=== PATIENT | female | born 1950 | race Caucasian/White ===

== ENCOUNTER → 2016-11-23 | Outpatient (CLI) | payer MEDICARE, OTHER ==
--- NOTE | 2016-11-23 15:29 | KCIC ---
PROCEDURE MRI study of the left foot without contrast HISTORY Metatarsal pain since September 2016. Swelling between the 3rd and 5th digits. No known injury. TECHNIQUE Noncontrast MRI sequences of the left midfoot were performed in all 3 planes. COMPARISON None available. FINDINGS There is diffuse edema of the 3rd metatarsal bone with relative sparing of the proximal and distal epiphysis. There is a healing stress fracture of the distal shaft of the 3rd metatarsal bone with periosteal reaction. There is associated soft tissue edema. Alignment is normal. 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 There is mild primary degenerative osteoarthritis of the 1st and 4th tarsal metatarsal joints. The flexor and extensor tendons are intact. No tenosynovitis is seen. IMPRESSION There is a nondisplaced subacute healing stress fracture of the distal shaft of the 3rd metatarsal bone. There is diffuse edema of the metatarsal bone with relative sparing of the proximal and distal epiphysis. Electronically signed by: Cricket Sandoval MD (Nov 23, 2016 15:28:21)
== END | disposition home or self-care (01) ==
LOC: KCIC MRI 14:34
PROVIDERS: ATTEND Podiatrist Foot & Ankle Surgery
DX: M84.375A Stress fracture, left foot, initial encounter for fracture (principal); X58.XXXA Exposure to other specified factors, initial encounter; Y93.89 Activity, other specified; Y92.89 Other specified places as the place of occurrence of the external cause; Y99.8 Other external cause status
CPT/HCPCS: 73718

== ENCOUNTER → 2017-07-07 | Outpatient (CLI) | payer MEDICARE, OTHER ==
--- NOTE | 2017-07-07 14:54 | KCIC ---
DATE: 07/07/2017 EXAM: MAMMO SOHAIL SCREENING BILATERAL HISTORY: Routine screening COMPARISON: 02/25/2016 This study was interpreted with the benefit of Computerized Aided Detection (CAD). The breast parenchyma shows scattered fibroglandular densities. Breast parenchyma level B. FINDINGS: 2-D and 3-D tomosynthesis imaging was performed in CC and MLO projections. No new or enlarging breast densities are seen. Unchanged benign type calcifications are present. No suspicious microcalcifications have developed. IMPRESSION: Stable mammograms without evidence of malignancy. BI-RADS CATEGORY: 2 BENIGN FINDING(S) RECOMMENDED FOLLOW-UP: 12M 12 MONTH FOLLOW-UP PQRS compliance statement: Patient information was entered into a reminder system with a target due date for the next mammogram. Mammography is a sensitive method for finding small breast cancers, but it does not detect them all and is not a substitute for careful clinical examination. A negative mammogram does not negate a clinically suspicious finding and should not result in delay in biopsying a clinically suspicious abnormality. "Our facility is accredited by the [employer] Mammography [employer]."
== END | disposition home or self-care (01) ==
LOC: KCIC MAMMO 14:08
PROVIDERS: ATTEND Obstetrics & Gynecology
DX: Z12.31 Encounter for screening mammogram for malignant neoplasm of breast (principal)
CPT/HCPCS: 77063; G0202; 77067

== ENCOUNTER → 2017-07-07 | Outpatient (CLI) | payer MEDICARE, OTHER ==
--- NOTE | 2017-07-07 15:28 | KCIC ---
MR of the right shoulder Indication: Right shoulder pain. Patient fell April 2017. Decreased range of motion. Technique: Standard multiplanar sequences are obtained. Findings: Acromioclavicular joint: Mildly degenerative. No significant undersurface mass effect. Rotator cuff: Thickening and hyperintense signal compatible with tendinosis. Small linear undersurface tear of the supraspinatus tendon, crosses 50 percent of the tendon with. There is a very tiny component of this tear which appears to extend all the way through to the bursal surface where it measures 1 mm thick, coronal series 8, image 10. No retraction. Mild fluid in the subdeltoid bursa. Glenohumeral cartilage: No acute defect or advanced DJD. Fluid: Small amount of joint fluid. Labrum: Posterosuperior labral tear. Biceps tendon: Mild tendinosis. Bones: No lesion or acute fracture. Soft tissue: No acute findings. Impression: 1. Rotator cuff tendinosis. There is a small undersurface tear of the supraspinatus tendon, the bulk of which is about 50 percent deep. However, there is a very narrow 1 mm component which does appear to extend all full-thickness through the bursal surface tissue. No retraction. 2. Small posterosuperior labral tear. 3. Biceps tendinosis. Electronically signed by: Fede Malone MD (07/07/2017 3:25 PM) [facility]
== END | disposition home or self-care (01) ==
LOC: KCIC MRI 13:52
PROVIDERS: ATTEND Orthopaedic Surgery
DX: M75.101 Unspecified rotator cuff tear or rupture of right shoulder, not specified as traumatic (principal)
CPT/HCPCS: 73221

== ENCOUNTER → 2017-07-18 | Outpatient (CLI) | payer MEDICARE, OTHER ==
--- NOTE | 2017-07-18 16:42 | KCIC ---
CHEST PA LATERAL History: Chronic cough Comparison: February 18, 2016 Findings: 2 views of the chest are submitted. There is again likely emphysema. Heart size is stable, within normal limits. Previously seen left upper lobe infiltrate is no longer present. The there is no new infiltrate or pleural fluid. Impression: 1. There is no lobar infiltrate. 2. There is emphysema. 3. CT would be more sensitive for detection of pulmonary nodules. Electronically signed by: Marco Antonio Klein MD (07/18/2017 4:38 PM) [facility]
== END | disposition home or self-care (01) ==
LOC: KCIC 16:11
PROVIDERS: ATTEND Family Medicine
DX: J43.9 Emphysema, unspecified (principal)
CPT/HCPCS: 71020

== ENCOUNTER → 2018-04-26 | Outpatient (CLI) | payer MEDICARE ==
--- NOTE | 2018-04-26 14:48 | KCIC ---
Bone densitometry 04/26/2018 11:59 AM Indication: Osteoporosis screening exam. Postmenopausal. Comparison Study: None. Discussion: Bone Densitometry was performed with dual photon absorption of the lumbar spine and left proximal femur. Lumbar Spine: Bone average density is 0.988g/cm2 for L1-L4. T-Score is -0.5. Left femoral neck: Bone average density is 0.965g/cm2. T-Score is 0.2. IMPRESSION: Normal bone mineral density Note: Definitions established by the World Health Organization: Normal: T-score is -1.0 or above. Osteopenia: T-score is between -1.0 and -2.5. Osteoporosis: T-score is -2.5 or below. Electronically signed by: Iggy Hathaway MD (04/26/2018 2:44 PM) [facility]
== END | disposition home or self-care (01) ==
LOC: KCIC DEXA 11:19
PROVIDERS: ATTEND Physician Assistant Medical
DX: Z13.820 Encounter for screening for osteoporosis (principal); J43.9 Emphysema, unspecified; Z78.0 Asymptomatic menopausal state
CPT/HCPCS: 77080

== ENCOUNTER → 2019-04-09 | Outpatient (CLI) | payer MEDICARE ==
--- NOTE | 2019-04-09 15:18 | KCIC ---
EXAM: Bilateral digital screening mammogram with tomosynthesis. HISTORY: 68-year-old female presents for screening mammography. TECHNIQUE: Full-field digital craniocaudal and mediolateral oblique 2D and 3D tomosynthesis images of both breasts are obtained for evaluation. Computer aided detection with [employer] software version 9.3 was applied. COMPARISON: 07/07/2017 and 05/20/2015 BREAST PARENCHYMAL DENSITY: Level B - Scattered fibroglandular densities. FINDINGS: There is no new suspicious mass, microcalcification or region of architectural distortion. There is stable slight retraction of the right nipple. The nearly 4 year course stability favors benignity. IMPRESSION: BI-RADS Category 2: Benign finding(s). RECOMMENDATION: Annual mammography is recommended. If your mammogram demonstrates that you have dense breast tissue, which could hide abnormalities, and if you have other risk factors for breast cancer that have been identified, you might benefit from supplemental screening tests that may be suggested by your ordering physician. Dense breast tissue, in and of itself, is a relatively common condition. This information is not provided to cause undue concern, but rather to raise your awareness and to promote discussion with your physician regarding the presence of other risk factors, in addition to dense breast tissue. A report of your mammography results will be sent to you and your physician. You should contact your physician if you have any questions or concerns regarding this report. Mammography is a sensitive method for finding small breast cancers, but it does not detect them all and is not a substitute for careful clinical examination. A negative mammogram does not negate a clinically suspicious finding and should not result in delay in biopsying a clinically suspicious abnormality. PQRS compliance statement - Patient information was entered into a reminder system with a target due date for the next mammogram. "Our facility is accredited by the [employer] Mammography Program." Electronically signed by: Nydia Kiran MD (04/09/2019 3:15 PM) [facility]
== END | disposition home or self-care (01) ==
LOC: KCIC MAMMO 11:44
PROVIDERS: ATTEND Obstetrics & Gynecology
DX: Z12.31 Encounter for screening mammogram for malignant neoplasm of breast (principal); N64.89 Other specified disorders of breast
CPT/HCPCS: 77063; 77067

== ENCOUNTER 2021-11-22 21:34 | Emergency (ER) | payer MEDICARE ==
[~2021-11-22] VITALS: Ht 170.2 cm; Wt 81.8 kg
[2021-11-22] MEDS ORDERED: ONDANSETRON PF 4 MG/2 ML VIAL. IVP ONE (22:00)
[2021-11-22] MEDS ORDERED: IV NORMAL SALINE 500ML BAG 500 ML IV ONE (22:00)
[2021-11-22] MEDS ORDERED: HALOPERIDOL LACTATE 5 MG/ML VIAL. IM ONE (22:15)
[2021-11-22] MEDS ORDERED: HALOPERIDOL LACTATE 5 MG/ML VIAL. ONE (22:23)
[2021-11-22 22:24] LABS: BASO # 0.1 x10^3/uL (0.0-0.2); BASO % 1 % (0-3); EOS # 0.2 x10^3/uL (0.0-0.7); EOS % 3 % (0-3); HEMATOCRIT 39.5 % (36.0-47.0); HEMOGLOBIN 13.4 g/dL (12.0-15.5); LYMPH # 1.6 x10^3/uL (1.0-4.8); LYMPH % 25 % (24-48); MEAN CORPUSCULAR HEMOGLOBIN 31 pg (25-35); MEAN CORPUSCULAR HGB CONC 34 g/dL (31-37); MEAN CORPUSCULAR VOLUME 92 fL (79-100); MONO # 0.4 x10^3/uL (0.0-1.1); MONO % 6 % (0-9); NEUT # 4.2 x10^3/uL (1.8-7.7); NEUT % 65 % (31-73); PLATELET COUNT 159 x10^3/uL (140-400); RED BLOOD COUNT 4.31 x10^6/uL (3.50-5.40); RED CELL DISTRIBUTION WIDTH 14.1 % (11.5-14.5); WHITE BLOOD COUNT 6.4 x10^3/uL (4.0-11.0)
[2021-11-22 23:47] LABS: CALCIUM 8.3 mg/dL (8.5-10.1); CREATININE 0.9 mg/dL (0.6-1.0); GFR 61.5; POTASSIUM 4.2 mmol/L (3.5-5.1)
[2021-11-22 23:57] LABS: ALBUMIN 3.6 g/dL (3.4-5.0); ALBUMIN/GLOBULIN RATIO 1.1 (1.0-1.7); TOTAL BILIRUBIN 0.2 mg/dL (0.2-1.0); TOTAL PROTEIN 6.9 g/dL (6.4-8.2)
[2021-11-23 01:30] VITALS: BP 124/78
[2021-11-23 01:53] LABS: BARBITURATES NEG (NEG); BENZODIAZEPINES NEG (NEG); CANNABINOIDS POS (NEG); COCAINE NEG (NEG); METHADONE NEG (NEG); OPIATES NEG (NEG); PHENCYCLIDINE NEG (NEG)
[2021-11-23 01:54] LABS: AMPHETAMINE/METHAMPHETAMINE NEG (NEG)
[2021-11-23 01:57] LABS: BACTERIA,URINE 0 /HPF (0-FEW); RBC,URINE 0 /HPF (0-2)
--- NOTE | 2021-11-23 02:03 | PHYS DOC ---
Past Medical History Past Surgical History: No Surgical History General Adult EDM: Chief Complaint: NAUSEA/VOMITING/DIARRHEA HPI: HPI: Patient is a 71 year old female states that she took a edible CBD gummy that was given by her neighbor for her pain states that afterwards she started to feel lightheaded and started having intractable vomiting. Patient denies any abdominal pain. Patient states that she did have a pizza no other sick contacts. Patient states that she usually takes her own CBD supplements but was given 1 by her neighbor which she does not know the name brand to. Review of Systems: Review of Systems: Constitutional: Denies fever or chills. [] Eyes: Denies change in visual acuity. [] HENT: Denies nasal congestion or sore throat. [] Respiratory: Denies cough or shortness of breath. [] Cardiovascular: Lightheadedness denies chest pain or edema. [] GI: Denies abdominal pain, nausea, vomiting, bloody stools or diarrhea. [] : Nausea vomiting denies dysuria. [] Musculoskeletal: Denies back pain or joint pain. [] Integument: Denies rash. [] Neurologic: Denies headache, focal weakness or sensory changes. [] Endocrine: Denies polyuria or polydipsia. [] Lymphatic: Denies swollen glands. [] Psychiatric: Denies depression or anxiety. [] Heart Score: C/O Chest Pain: No Risk Factors: Risk Factors: DM, Current or recent (<one month) smoker, HTN, HLP, family history of CAD, obesity. Risk Scores: Score 0 - 3: 2.5% MACE over next 6 weeks - Discharge Home Score 4 - 6: 20.3% MACE over next 6 weeks - Admit for Clinical Observation Score 7 - 10: 72.7% MACE over next 6 weeks - Early Invasive Strategies Current Medications: Current Medications Medications (Trade) Dose Ordered Sig/Mikel Start Time Stop Time Status Last Admin Dose Admin Haloperidol Lactate (Haldol Inj) 2 mg 1X ONCE 11/22/21 22:15 11/22/21 22:16 UNV 11/22/21 22:29 2 MG Lorazepam (Ativan Inj) 1 mg 1X ONCE 11/22/21 22:15 11/22/21 22:16 UNV 11/22/21 22:29 1 MG Ondansetron HCl (Zofran) 4 mg 1X ONCE 11/22/21 22:00 11/22/21 22:03 DC Sodium Chloride 500 ml @ 500 mls/hr 1X ONCE 11/22/21 22:00 11/22/21 22:59 UNV 11/22/21 22:30 500 MLS/HR Physical Exam: PE: Constitutional: Well developed, well nourished, moderate distress ill-appearing HENT: Normocephalic, atraumatic, bilateral external ears normal, oropharynx moist, no oral exudates, nose normal. [] Eyes: PERRLA, EOMI, conjunctiva normal, no discharge. [] Neck: Normal range of motion, no tenderness, supple, no stridor. [] Cardiovascular:Heart rate regular rhythm, no murmur [] Lungs & Thorax: Bilateral breath sounds clear to auscultation [] Abdomen: Actively vomit bowel sounds normal, soft, no tenderness, no masses, no pulsatile masses. [] Skin: Warm, dry, no erythema, no rash. [] Back: No tenderness, no CVA tenderness. [] Extremities: No tenderness, no cyanosis, no clubbing, ROM intact, no edema. [] Neurologic: Alert and oriented X 3, normal motor function, normal sensory function, no focal deficits noted. [] Psychologic: Affect normal, judgement normal, mood normal. [] Current Patient Data: Labs: Laboratory Tests Test 11/22/21 22:15 11/22/21 23:20 11/23/21 01:34 White Blood Count 6.4 x10^3/uL (4.0-11.0) Red Blood Count 4.31 x10^6/uL (3.50-5.40) Hemoglobin 13.4 g/dL (12.0-15.5) Hematocrit 39.5 % (36.0-47.0) Mean Corpuscular Volume 92 fL (79-100) Mean Corpuscular Hemoglobin 31 pg (25-35) Mean Corpuscular Hemoglobin Concent 34 g/dL (31-37) Red Cell Distribution Width 14.1 % (11.5-14.5) Platelet Count 159 x10^3/uL (140-400) Neutrophils (%) (Auto) 65 % (31-73) Lymphocytes (%) (Auto) 25 % (24-48) Monocytes (%) (Auto) 6 % (0-9) Eosinophils (%) (Auto) 3 % (0-3) Basophils (%) (Auto) 1 % (0-3) Neutrophils # (Auto) 4.2 x10^3/uL (1.8-7.7) Lymphocytes # (Auto) 1.6 x10^3/uL (1.0-4.8) Monocytes # (Auto) 0.4 x10^3/uL (0.0-1.1) Eosinophils # (Auto) 0.2 x10^3/uL (0.0-0.7) Basophils # (Auto) 0.1 x10^3/uL (0.0-0.2) Sodium Level 140 mmol/L (136-145) Potassium Level 4.2 mmol/L (3.5-5.1) Chloride Level 107 mmol/L (98-107) Carbon Dioxide Level 28 mmol/L (21-32) Anion Gap 5 (6-14) L Blood Urea Nitrogen 27 mg/dL (7-20) H Creatinine 0.9 mg/dL (0.6-1.0) Estimated GFR (Cockcroft-Gault) 61.5 BUN/Creatinine Ratio 30 (6-20) H Glucose Level 133 mg/dL (70-99) H Calcium Level 8.3 mg/dL (8.5-10.1) L Total Bilirubin 0.2 mg/dL (0.2-1.0) Aspartate Amino Transferase (AST) 36 U/L (15-37) Alanine Aminotransferase (ALT) 55 U/L (14-59) Alkaline Phosphatase 88 U/L (46-116) Total Protein 6.9 g/dL (6.4-8.2) Albumin 3.6 g/dL (3.4-5.0) Albumin/Globulin Ratio 1.1 (1.0-1.7) Lipase 75 U/L (73-393) Urine Collection Type Unknown Urine Color (Auto) Colorless Urine Turbidity Clear Urine pH (Auto) 6.5 (<5.0-8.0) Urine Specific [place] 1.012 (1.000-1.030) Urine Protein (Auto) Negative mg/dL (Negative) Urine Glucose (Auto)(UA) Negative mg/dL (Negative) Urine Ketones (Auto) Negative mg/dL (Negative) Urine Blood (Auto) Negative (Negative) Urine Nitrite (Auto) Negative (Negative) Urine Bilirubin (Auto) Negative (Negative) Urine Urobilinogen (Auto) Normal mg/dL (Normal) Urine Leukocyte Esterase (Auto) Moderate (Negative) Urine RBC 0 /HPF (0-2) Urine WBC 5-10 /HPF (0-4) Urine Squamous Epithelial Cells Few /LPF Urine Bacteria 0 /HPF (0-FEW) Urine Mucus Slight /LPF Urine Opiates Screen Neg (NEG) Urine Methadone Screen Neg (NEG) Urine Barbiturates Neg (NEG) Urine Phencyclidine Screen Neg (NEG) Urine Amphetamine/Methamphetamine Neg (NEG) Urine Benzodiazepines Screen Neg (NEG) Urine Cocaine Screen Neg (NEG) Urine Cannabinoids Screen Pos (NEG) Urine Ethyl Alcohol Neg (NEG) Laboratory Tests 11/22/21 22:15 Laboratory Tests 11/22/21 23:20 Vital Signs: Vital Signs Date Time Temp Pulse Resp B/P (MAP) Pulse Ox O2 Delivery O2 Flow Rate FiO2 11/22/21 21:51 97.4 78 16 134/72 (92) 100 Room Air 97.4 EKG: EKG: [] Radiology/Procedures: Radiology/Procedures: [] Course & Med Decision Making: Course & Med Decision Making Pertinent Labs and Imaging studies reviewed. (See chart for details) [] Patient is resting comfortably. Return precautions were discussed signs at the bedside. Lab results were reviewed Maia Disclaimer: Maia Disclaimer: This electronic medical record was generated, in whole or in part, using a voice recognition dictation system. Departure Departure Referrals: YESY STACY MD (PCP) ZOE SCRUGGS DO Nov 23, 2021 02:03
== END 2021-11-23 02:32 | disposition home or self-care (01) ==
LOC: ER 21:34
DX: R42 Dizziness and giddiness (principal); R11.2 Nausea with vomiting, unspecified
CPT/HCPCS: 36415; 80053; 80307; 81001; 83690; 85025; 96372; 96374; 99284; J1630; J2060; J7040; 96361